=== PATIENT | male | born 1975 | race Caucasian/White ===

== ENCOUNTER 2017-11-08 19:42 | Emergency (ER) | payer OTHER ==
[2017-11-08 22:29] LABS: BASO % 0.2 % (0.0-1.0); EOS % 0.1 % (0.0-3.0); HEMATOCRIT 42.4 % (42.0-52.0); IMMATURE GRANULOCYTE % 0.4 % (0-3.0); LYMPH # 2.3 10^3/uL (1.5-4.5); LYMPH % 13.7 % (24.0-44.0); MEAN CORPUSCULAR HEMOGLOBIN 28.9 pg (27.0-33.0); MEAN CORPUSCULAR VOLUME 87.6 fl (80.0-96.0); MONO # 1.9 10^3/uL (0.0-0.8); MONO % 11.3 % (0.0-5.0); NEUTROPHILS # 12.4 10^3/uL (1.8-7.7); NEUTROPHILS % 74.3 % (36.0-66.0); PLATELET COUNT, AUTOMATED 234 10^3/uL (150-450); RED BLOOD COUNT 4.84 10^6/uL (4.30-6.10); RED CELL DISTRIBUTION WIDTH 12.5 % (11.5-14.5); WHITE BLOOD COUNT 16.7 10^3/uL (4.0-10.0)
[2017-11-08] MEDS: NS 1,000 ML IV (22:30)
[2017-11-08 22:32] LABS: KETONE, URINE AUTO RFX 1+ mg/dL (NEGATIVE); LEUKOCYTE ESTERASE UR AUTO RFX NEGATIVE (NEGATIVE); MUCUS, URINE RFX SMALL (NEGATIVE); NITRITE, URINE AUTO RFX NEGATIVE (NEGATIVE); RBC, URINE AUTO RFX 3 /HPF (0-3); SPECIFIC GRAVITY UR AUTO RFX 1.017 (1.002-1.035); SQUAM EPITHELIAL CELL UR AURFX 0 /HPF (0-6); WBC, URINE AUTO RFX 1 /HPF (0-3)
[2017-11-08 22:55] LABS: ALBUMIN 3.8 GM/DL (3.2-5.2); ALBUMIN/GLOBULIN RATIO 1.06 (1.00-1.93); ALKALINE PHOSPHATASE 65 U/L (45-117); ALT/SGPT 29 U/L (12-78); ANION GAP 7 MEQ/L (8-16); AST/SGOT 16 U/L (7-37); BILIRUBIN,DIRECT 0.1 MG/DL (0.0-0.2); BILIRUBIN,TOTAL 0.4 MG/DL (0.2-1.0); BLOOD UREA NITROGEN 8 MG/DL (7-18); CALCIUM LEVEL 8.8 MG/DL (8.5-10.1); CARBON DIOXIDE LEVEL 27 MEQ/L (21-32); CHLORIDE LEVEL 105 MEQ/L (98-107); CREATININE FOR GFR 0.92 MG/DL (0.70-1.30); GLOMERULAR FILTRATION RATE > 60.0 (>60); GLUCOSE, FASTING 107 MG/DL (70-100); LIPASE 96 U/L (73-393); POTASSIUM SERUM 4.3 MEQ/L (3.5-5.1); SODIUM LEVEL 139 MEQ/L (136-145); TOTAL PROTEIN 7.4 GM/DL (6.4-8.2)
[2017-11-08 23:04] LABS: INFLUENZA A AMPLIFICATION NEGATIVE (NEGATIVE); INFLUENZA B AMPLIFICATION NEGATIVE (NEGATIVE)
[2017-11-08] MEDS ORDERED: ISOVUE-370 76% 100ML VIAL (Q9967) As Ordered (23:24)
[2017-11-09] MEDS: AUGMENTIN 875 MG TAB PO (00:11)
[2017-11-09] MEDS: MAGIC MOUTHWASH SUSPENSION BTL SSP (00:29)
== END 2017-11-09 00:31 | disposition home or self-care (01) ==
LOC: M ED 11-09 00:31
DX: J02.9 Acute pharyngitis, unspecified (principal); R10.9 Unspecified abdominal pain; R50.9 Fever, unspecified; M79.1 Myalgia; M54.9 Dorsalgia, unspecified; Z88.8 Allergy status to other drugs, medicaments and biological substances
CPT/HCPCS: Q9967

== ENCOUNTER 2018-06-30 05:32 | Day surgery (SDC) | payer OTHER ==
[~2018-06-30] VITALS: Ht 167.6 cm; Wt 79.2 kg
[~2018-06-30 05:32] MED LIST: AUGM875T28 PO; IBUP-1022 PO; MAGICMW MT
[2018-06-30] MEDS ORDERED: ceFAZolin SOD 1 GM in D5W MINI-BAG PLUS 50 ML IV ONE (06:00)
[2018-06-30] MEDS ORDERED: LR 1,000 ML IV ONE (06:00)
[2018-06-30] MEDS ORDERED: LIDOCAINE 2% INJ 100 MG/5 ML SDV (FOR ANES.) As Ordered ONE (06:55)
[2018-06-30] MEDS ORDERED: PROPOFOL 200 MG/20 ML VIAL As Ordered ONE ×5 (06:55→09:00)
[2018-06-30] MEDS ORDERED: dexameTHASONE 4 MG/ML 1ML VIAL (J1100) As Ordered ONE (06:58)
[2018-06-30] MEDS ORDERED: ONDANSETRON 4MG/2ML VIAL (J2405) As Ordered ONE (06:58)
[2018-06-30] MEDS ORDERED: REMIFENTANIL 1MG 3ML VIAL As Ordered ONE ×2 (07:01→07:02)
[2018-06-30] MEDS ORDERED: HYDROmorphone HCL 2 MG/ML 1ML VIAL (J1170) As Ordered ONE (07:01)
[2018-06-30] MEDS ORDERED: MIDAZOLAM INJ 2 MG/2 ML VIAL (J2250) As Ordered ONE (07:02)
[2018-06-30] MEDS ORDERED: BUPIVACAINE/EPIN 0.25% 30 ML VIAL As Ordered ONE (07:14)
[2018-06-30] MEDS ORDERED: fentaNYL 100 MCG/2 ML INJECTION (J3010) As Ordered ONE ×2 (07:37→09:49)
[2018-06-30] MEDS ORDERED: SUGAMMADEX SODIUM 500 MG/5 ML VIAL (BRIDION) As Ordered ONE (08:00)
[2018-06-30] MEDS ORDERED: ROCURONIUM BROMIDE 50 MG/5 ML VIAL As Ordered ONE (08:01)
[2018-06-30] MEDS ORDERED: KETOROLAC 60 MG/2 ML VIAL (J1885) As Ordered ONE (08:13)
--- NOTE | 2018-06-30 09:45 | RO ---
DATE OF PROCEDURE: 06/30/2018 PREOPERATIVE DIAGNOSIS: Right inguinal hernia (recurrent). POSTOPERATIVE DIAGNOSIS: Right inguinal hernia (recurrent). PROCEDURE: Robotic-assisted laparoscopic right inguinal hernia repair with ProGrip mesh. SURGEON: Earl Romero MD TURNING MACHINE OPERATOR HELPER: Mariaelena Collins NP (provided instrument exchange, trocar placement and abdominal wall closure). ESTIMATED BLOOD LOSS: 15 mL. FLUIDS: Crystalloid. BRIEF PROCEDURE SUMMARY: The patient was brought to the operating room and was given general anesthesia. After adequate anesthesia and preoperative antibiotics, the patient was prepped and draped in the usual sterile fashion. Next, a supraumbilical incision was made with skin knife. Blunt dissection was carried down to fascia and Veress needle placed into the abdominal cavity, insufflated to 15 mm of pressure. A dilating 5 mm trocar was placed at this time and two lateral 8 mm trocars were placed. Next, the patient was placed into a steep Trendelenburg position. Camera port was replaced at the umbilicus, and the robot was docked without difficulty. Next, the peritoneum overlying the right side was taken down with monopolar cut scissors; however, this is extremely attenuated, very thin peritoneum, and I did make a small rent in this peritoneum that I closed up later with a #3-0 V-Loc. In any case, the dissection continued all the way to the inguinal canal, medially off Quinn's as well. Once this plane was obtained, the hernia sac was delivered out of the inguinal canal. It was quite attached to the previous hernia repair, but it was able to be dissected off this area. Eventually, once this was mobilized adequately, the ProGrip mesh was placed in the preperitoneal space, pressed into position and had a good lie on the area of the hernia, as well at the direct area. However, just going over the vas in this area, there was a deep drop-off into the pelvis so I made a little notch in the mesh here to allow for better placement. In any case, the peritoneum was closed with a running V-Loc #2-0. The peritoneal rent then was closed with a running V-Loc; however, in attempting to imbricate the hernia sac and then tacking it up to the anterior abdominal wall, the epigastric vein appeared to get poked with the tip of the needle. There was some oozing from the site, which was controlled with the bipolar scissors. There was no significant oozing after this, however, I did place some additional local Marcaine with epinephrine in the area of the dissection. This was again viewed, revealed no bleeding and then all trocars were removed under direct visualization. All trocars were removed from the site and #4-0 Vicryl was used close all incisions. Steri-Strips and dry sterile dressing was applied. The patient was awakened, extubated, brought to recovery room awake, alert, hemodynamically stable. Sponge and needle counts correct times two.
[2018-06-30] MEDS ORDERED: PERCOCET 5MG/325MG TAB As Ordered ONE (09:48)
[2018-06-30] MEDS: fentaNYL 100 MCG/2 ML INJECTION (J3010) IV PRN ×2 (09:54→09:59)
[2018-06-30] MEDS ORDERED: ONDANSETRON 4MG/2ML VIAL (J2405) IV PRN (10:00)
[2018-06-30] MEDS ORDERED: LR 1,000 ML IV SCH (10:00)
[2018-06-30] MEDS ORDERED: PERCOCET 5MG/325MG TAB PO PRN (10:00)
[2018-06-30 10:20] VITALS: BP 141/77
== END 2018-06-30 11:20 | disposition home or self-care (01) ==
LOC: M SDC 05:32
PROVIDERS: ATTEND Surgery
DX: K40.91 Unilateral inguinal hernia, without obstruction or gangrene, recurrent (principal); M12.9 Arthropathy, unspecified; T88.3XXD Malignant hyperthermia due to anesthesia, subsequent encounter; Z87.891 Personal history of nicotine dependence

== ENCOUNTER 2019-01-05 08:22 | Emergency (ER) | payer OTHER ==
[~2019-01-05] VITALS: Ht 167.6 cm; Wt 82.0 kg
[2019-01-05] MEDS ORDERED: ONDANSETRON 4MG/2ML VIAL (J2405) IV ONE (09:45)
--- NOTE | 2019-01-05 09:54 | REP ---
PA and lateral chest: Comparison is 11/08/2017. The lung hdez are clear. The cardiac size is normal. The bang, mediastinum, and skeletal structures are unremarkable. Impression: Negative PA and lateral chest. There is no interval change. Electronically Signed by Siddharth Ramirez MD 01/05/2019 09:46 A
[2019-01-05 10:05] LABS: HEMATOCRIT 40.7 % (42.0-52.0); HEMOGLOBIN 13.6 g/dl (13.5-17.5); MEAN CORPUSCULAR HEMOGLOBIN 28.8 pg (27.0-33.0); MEAN CORPUSCULAR HGB CONC 33.4 g/dl (32.0-36.5); MEAN CORPUSCULAR VOLUME 86.2 fl (80.0-96.0); PLATELET COUNT, AUTOMATED 252 10^3/uL (150-450); RED BLOOD COUNT 4.72 10^6/uL (4.30-6.10); WHITE BLOOD COUNT 11.4 10^3/uL (4.0-10.0)
[2019-01-05 10:31] LABS: ERYTHROCYTE SEDIMENTATION RATE 4 mm/hr (0-15)
[2019-01-05 10:36] LABS: C REACTIVE PROTEIN QUANTITATIV < 0.30 MG/DL (0.00-0.30); CK-MB VALUE MASS < 1.0 NG/ML (<3.6); CPK CREATINE PHOSPHOKINASE 114 U/L (39-308); MAGNESIUM LEVEL 2.2 MG/DL (1.8-2.4); MB/CK RELATIVE INDEX 0.88 (< OR =4); THYROID STIMULATING HORMONE 0.678 uIU/ML (0.358-3.740); TROPONIN I < 0.02 NG/ML (< 0.10)
--- NOTE | 2019-01-05 11:23 | REP ---
CT BRAIN WITHOUT CONTRAST: CT brain performed without IV contrast. The ventricles are normal in size and position with no midline shift or mass effect. Virgen-white differentiation is well maintained. There is no acute intracranial hemorrhage or extra-axial fluid collection. Bone window examination is unremarkable. IMPRESSION: Negative noncontrast CT brain. Electronically Signed by Siddharth Virgen MD 01/06/2019 03:38 P
[2019-01-05] MEDS ORDERED: NS 1,000 ML IV ONE (11:45)
[2019-01-05] MEDS ORDERED: MECLIZINE 25 MG TABLET PO ONE (11:45)
[2019-01-05] MEDS ORDERED: MECL-68 PO (13:01)
[2019-01-05] MEDS ORDERED: ZOFR8TAB24 PO (13:01)
[2019-01-05 13:36] VITALS: BP 130/83
--- NOTE | 2019-01-05 19:51 | ECGEPIP ---
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
--- NOTE | 2019-01-05 19:59 | ECGEPIP ---
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
== END 2019-01-05 13:30 | disposition home or self-care (01) ==
LOC: M ED 08:22
DX: H81.12 Benign paroxysmal vertigo, left ear (principal); E78.5 Hyperlipidemia, unspecified
CPT/HCPCS: 70450; 71046; 80047; 81001; 82550; 82553; 83735; 84443; 84484; 85027; 85652; 86140; 93005; 96361; 96374; 99284; J2405

== ENCOUNTER 2022-04-11 06:33 | Day surgery (SDC) | payer OTHER ==
[~2022-04-11] VITALS: Ht 167.6 cm; Wt 78.5 kg
[~2022-04-11 06:33] MED LIST changes: +MECL1TAB31 PO; +NS 1,000 ML IV ONE; +ZOFR8TAB24 PO
[2022-04-11] MEDS ORDERED: LIDOCAINE 2% 100MG/5ML SDV (FOR ANES.) As Ordered ONE (07:13)
[2022-04-11] MEDS ORDERED: propofoL 200 MG/20 ML VIAL As Ordered ONE (07:13)
[2022-04-11 08:30] VITALS: BP 123/83
== END 2022-04-11 08:45 | disposition home or self-care (01) ==
LOC: M OPP 06:33
PROVIDERS: ATTEND Internal Medicine Gastroenterology
DX: Z12.11 Encounter for screening for malignant neoplasm of colon (principal); K64.0 First degree hemorrhoids; K63.5 Polyp of colon; K44.9 Diaphragmatic hernia without obstruction or gangrene; K22.10 Ulcer of esophagus without bleeding; K31.89 Other diseases of stomach and duodenum; R12 Heartburn; Z88.8 Allergy status to other drugs, medicaments and biological substances; Z88.4 Allergy status to anesthetic agent; M13.89 Other specified arthritis, multiple sites; Z84.81 Family history of carrier of genetic disease

== ENCOUNTER 2025-03-02 02:33 | Emergency (ER) | payer OTHER ==
[~2025-03-02] VITALS: Ht 167.6 cm; Wt 77.3 kg
[~2025-03-02 02:33] MED LIST changes: -IBUP-1022 PO; +IBUP600T42 PO; +MECL-209 PO; -MECL1TAB31 PO; -NS 1,000 ML IV ONE
[2025-03-02] MEDS: KETOROLAC 30 MG/ML 1 ML VIAL IV ONE (03:09)
[2025-03-02] MEDS: ONDANSETRON 4MG 2ML VIAL IV ONE ×2 (03:09→08:09)
[2025-03-02] MEDS: NS (Normal Saline) 0.9% 1,000 ML IV ONE (03:10)
[2025-03-02 03:26] LABS: BASO # 0.1 10^3/uL (0.0-0.2); BASO % 0.5 % (0.0-1.0); EOS # 0.2 10^3/uL (0.0-0.5); EOS % 1.4 % (0.0-3.0); LYMPH # 3.2 10^3/uL (1.5-5.0); LYMPH % 24.6 % (24.0-44.0); MONO # 0.8 10^3/uL (0.0-0.8); MONO % 5.8 % (2.0-8.0); NEUTROPHILS # 8.7 10^3/uL (1.5-8.5); NEUTROPHILS % 67.4 % (36.0-66.0); PLATELET COUNT, AUTOMATED 356 10^3/uL (150-450)
[2025-03-02 03:43] LABS: ALT/SGPT 30 U/L (7.0-40); AST/SGOT 20 U/L (<34); CALCIUM LEVEL 9.6 MG/DL (8.5-10.1); CARBON DIOXIDE LEVEL 29 MMOL/L (20-31); CHLORIDE LEVEL 103 MMOL/L (98-107); CREATININE FOR GFR 0.99 MG/DL (0.70-1.30); GLOMERULAR FILTRATION RATE > 90.0 (>60); POTASSIUM SERUM 3.9 MMOL/L (3.5-5.1); SODIUM LEVEL 141 MMOL/L (136-145)
[2025-03-02 06:54] LABS: AMORPHOUS SEDIMENT LARGE (NEGATIVE); APPEARANCE, URINE TURBID (CLEAR); BACTERIA, URINE AUTO NEGATIVE (NEGATIVE); BILIRUBIN, URINE AUTO NEGATIVE (NEGATIVE); BLOOD, URINE BLOOD NEGATIVE (NEGATIVE); GLUCOSE, URINE (UA) AUTO NEGATIVE (NEGATIVE); KETONE, URINE AUTO 1+ mg/dL (NEGATIVE); LEUKOCYTE ESTERASE, URINE AUTO NEGATIVE (NEGATIVE); MUCUS, URINE SMALL (NEGATIVE); NITRITE, URINE AUTO NEGATIVE (NEGATIVE); PROTEIN, URINE AUTO 2+ mg/dL (NEGATIVE); RBC, URINE AUTO 1 /HPF (0-3); SPECIFIC GRAVITY URINE AUTO 1.019 (1.002-1.035); SQUAMOUS EPITHELIAL CELL UR AU 0 /HPF (0-6); UROBILINOGEN, URINE AUTO 0.2 mg/dL (0.0-2.0); WBC, URINE AUTO 1 /HPF (0-3)
[2025-03-02] MEDS ORDERED: ONDA-282 PO (07:55)
[2025-03-02] MEDS ORDERED: HYDR-3713 PO (07:55)
[2025-03-02] MEDS ORDERED: PROT20TA11 PO (07:55)
[2025-03-02 08:07] VITALS: BP 117/82; TEMP 97.6; O2SAT 99
[2025-03-02] MEDS: MORPHINE 4 MG/ML 1 ML VIAL IV ONE (08:08)
[2025-03-03] MEDS ORDERED: [UNRECOGNIZED DRUG - CODE] PO (20:09)
== END 2025-03-02 08:11 | disposition home or self-care (01) ==
LOC: M ED 02:33
DX: K80.20 Calculus of gallbladder without cholecystitis without obstruction (principal); F17.200 Nicotine dependence, unspecified, uncomplicated; Z88.8 Allergy status to other drugs, medicaments and biological substances
CPT/HCPCS: 74176; 76705; 80053; 81001; 85025; 96374; 96375; 99284; J1885; J2405

== ENCOUNTER 2025-03-03 15:46 | Inpatient (IN) | payer OTHER ==
[~2025-03-03] VITALS: Ht 167.6 cm; Wt 80.0 kg
[~2025-03-03 15:46] MED LIST changes: +HYDR-3713 PO; +ONDA-282 PO; +PROT20TA11 PO
[2025-03-03 17:20] LABS: BASO # 0.1 10^3/uL (0.0-0.2); BASO % 0.2 % (0.0-1.0); EOS # 0.0 10^3/uL (0.0-0.5); EOS % 0.1 % (0.0-3.0); LYMPH # 1.8 10^3/uL (1.5-5.0); LYMPH % 8.9 % (24.0-44.0); MONO # 1.6 10^3/uL (0.0-0.8); MONO % 7.8 % (2.0-8.0); NEUTROPHILS # 16.8 10^3/uL (1.5-8.5); NEUTROPHILS % 82.5 % (36.0-66.0); PLATELET COUNT, AUTOMATED 321 10^3/uL (150-450)
[2025-03-03 17:47] LABS: ALT/SGPT 22 U/L (7.0-40); AST/SGOT 16 U/L (<34); CALCIUM LEVEL 9.1 MG/DL (8.5-10.1); CARBON DIOXIDE LEVEL 28 MMOL/L (20-31); CHLORIDE LEVEL 103 MMOL/L (98-107); CREATININE FOR GFR 0.95 MG/DL (0.70-1.30); GLOMERULAR FILTRATION RATE > 90.0 (>60); POTASSIUM SERUM 4.2 MMOL/L (3.5-5.1); SODIUM LEVEL 138 MMOL/L (136-145)
[2025-03-03] MEDS: MORPHINE 2 MG/ML 1 ML VIAL IV ONE ×2 (19:24→20:27)
[2025-03-03] MEDS: LR 2,000 ML IV SCH (19:45)
[2025-03-03] MEDS ORDERED: VANCOMYCIN HCL 1,000 MG, VIAL MATE ADAPTER 1 EACH in NS 250 ML IV SCH (19:45)
[2025-03-03] MEDS: PIPERACILLIN/TAZOBACTAM SOD 4.5 GM in DEXTROSE 5% (D5W) ADV/MINI-BAG 50 ML IV SCH (19:56)
[2025-03-03] MEDS: NS (Normal Saline) 0.9% 1,000 ML IV SCH (19:57)
[2025-03-03] MEDS: ACETAMINOPHEN *IV* 1,000 MG in IV 1 EA IV ONE (19:57)
[2025-03-03] MEDS: NS (Normal Saline) 0.9% 1,000 ML IV ONE (19:57)
[2025-03-03] MEDS ORDERED: [UNRECOGNIZED DRUG - CODE] PO (20:09)
[2025-03-03] MEDS ORDERED: HOME MED LIST COMPLETE! XX SCH (20:10)
[2025-03-03] MEDS: PANTOPRAZOLE 40MG VIAL IV ONE (20:25)
[2025-03-03] MEDS: VANCOMYCIN HCL 1,500 MG, VIAL MATE ADAPTER 1 EACH in NS 500 ML IV ONE (21:31)
[2025-03-03] MEDS: D5W/LR 1,000 ML IV SCH (21:33)
[2025-03-03] MEDS: HEPARIN SOD 5000 UNITS/ML 1 ML VIAL/SYRINGE SC ONE (21:42)
[2025-03-03 22:00] VITALS: BP 118/73; TEMP 98.6; O2SAT 95
[2025-03-03 22:05] VITALS: O2SAT 96
[2025-03-04] VITALS (7 sets, daily range): BP systolic 105–126; BP diastolic 59–70; TEMP 98.1–100.7; O2SAT 94–95
[2025-03-04] MEDS: VANCOMYCIN HCL 750 MG, VIAL MATE ADAPTER 1 EACH in NS 250 ML IV SCH (04:10)
[2025-03-04] MEDS: ACETAMINOPHEN *IV* 1,000 MG in IV 1 EA IV PRN (05:53)
[2025-03-04] MEDS ORDERED: NALOXONE INJ 0.4 MG/1 ML VIAL IV PRN (07:20)
[2025-03-04] MEDS: HYDROMORPHONE HCL 0.5 MG/0.5 ML SYRINGE IV ONE (07:53)
[2025-03-04] MEDS: LR 1,000 ML IV ONE (07:53)
[2025-03-04] MEDS: ONDANSETRON 4MG 2ML VIAL IV PRN (08:12)
[2025-03-04] MEDS: KETOROLAC 30 MG/ML 1 ML VIAL IV SCH (08:16)
[2025-03-04] MEDS: PANTOPRAZOLE 40MG VIAL IV SCH (08:16)
[2025-03-04] MEDS: LR 1,000 ML IV SCH (09:08)
[2025-03-04 10:11] LABS: BASO # 0.1 10^3/uL (0.0-0.2); BASO % 0.3 % (0.0-1.0); EOS # 0.1 10^3/uL (0.0-0.5); EOS % 0.3 % (0.0-3.0); LYMPH # 1.2 10^3/uL (1.5-5.0); LYMPH % 6.7 % (24.0-44.0); MONO # 1.5 10^3/uL (0.0-0.8); MONO % 8.3 % (2.0-8.0); NEUTROPHILS # 15.1 10^3/uL (1.5-8.5); NEUTROPHILS % 83.9 % (36.0-66.0); PLATELET COUNT, AUTOMATED 226 10^3/uL (150-450)
[2025-03-04 10:22] LABS: INR 1.28
[2025-03-04 11:25] LABS: ALT/SGPT 96 U/L (7.0-40); AST/SGOT 68 U/L (<34); CALCIUM LEVEL 8.1 MG/DL (8.5-10.1); CARBON DIOXIDE LEVEL 23 MMOL/L (20-31); CHLORIDE LEVEL 108 MMOL/L (98-107); CREATININE FOR GFR 0.81 MG/DL (0.70-1.30); GLOMERULAR FILTRATION RATE > 90.0 (>60); MAGNESIUM LEVEL 1.7 MG/DL (1.8-2.4); POTASSIUM SERUM 3.7 MMOL/L (3.5-5.1); SODIUM LEVEL 139 MMOL/L (136-145)
[2025-03-04] MEDS: HYDROMORPHONE HCL 0.5 MG/0.5 ML SYRINGE IV PRN (13:13)
[2025-03-04] MEDS: ACETAMINOPHEN *IV* 1,000 MG in IV 1 EA IV ONE (15:29)
[2025-03-04] MEDS ORDERED: dexmedeTOMIDine (4 MCG/ML) 200 MCG/50 ML BTL As Ordered ONE (15:44)
[2025-03-04] MEDS ORDERED: MIDAZOLAM INJ 2 MG/2 ML VIAL As Ordered ONE (15:44)
[2025-03-04] MEDS ORDERED: SUGAMMADEX SODIUM 500 MG/5 ML VIAL As Ordered ONE (15:45)
[2025-03-04] MEDS ORDERED: ROCURONIUM BROMIDE 50MG/5ML VIAL As Ordered ONE (15:45)
[2025-03-04] MEDS ORDERED: ONDANSETRON 4MG 2ML VIAL As Ordered ONE (15:45)
[2025-03-04] MEDS ORDERED: dexAMETHasone 4 MG/ML 1 ML VIAL As Ordered ONE (15:45)
[2025-03-04] MEDS ORDERED: ACETAMINOPHEN 1000MG/100ML IV BAG As Ordered ONE (16:00)
[2025-03-04] MEDS ORDERED: KETOROLAC 30 MG/ML 1 ML VIAL As Ordered ONE (16:07)
[2025-03-04] MEDS: INDOCYANINE GREEN 25 MG VIAL As Ordered ONE (21:05)
[2025-03-04] MEDS: LIDOCAINE 1% SDV 30 ML VIAL As Ordered ONE (21:14)
[2025-03-04] MEDS ORDERED: HYDROmorphone HCL 2 MG/ML 1 ML VIAL As Ordered ONE (21:33)
[2025-03-04] MEDS ORDERED: ONDANSETRON 4MG 2ML VIAL IV PRN (22:55)
[2025-03-04] MEDS ORDERED: HYDROMORPHONE HCL 0.5 MG/0.5 ML SYRINGE IV PRN (22:55)
[2025-03-05] VITALS (13 sets, daily range): BP systolic 101–136; BP diastolic 52–75; TEMP 97.2–99; O2SAT 89–96
[2025-03-05 09:32] LABS: BASO # 0.0 10^3/uL (0.0-0.2); BASO % 0.1 % (0.0-1.0); EOS # 0.0 10^3/uL (0.0-0.5); EOS % 0.0 % (0.0-3.0); LYMPH # 0.9 10^3/uL (1.5-5.0); LYMPH % 5.0 % (24.0-44.0); MONO # 0.7 10^3/uL (0.0-0.8); MONO % 3.9 % (2.0-8.0); NEUTROPHILS # 15.3 10^3/uL (1.5-8.5); NEUTROPHILS % 90.5 % (36.0-66.0); PLATELET COUNT, AUTOMATED 246 10^3/uL (150-450)
[2025-03-05] MEDS ORDERED: ISOVUE-370 76% 100 ML VIAL As Ordered ONE (09:58)
[2025-03-05 10:03] LABS: ALT/SGPT 85 U/L (7.0-40); AST/SGOT 46 U/L (<34); CALCIUM LEVEL 8.3 MG/DL (8.5-10.1); CARBON DIOXIDE LEVEL 24 MMOL/L (20-31); CHLORIDE LEVEL 107 MMOL/L (98-107); CREATININE FOR GFR 0.82 MG/DL (0.70-1.30); GLOMERULAR FILTRATION RATE > 90.0 (>60); POTASSIUM SERUM 4.1 MMOL/L (3.5-5.1); SODIUM LEVEL 140 MMOL/L (136-145)
[2025-03-05] MEDS: LR 1,000 ML IV SCH (14:50)
[2025-03-06 04:03] VITALS: BP 119/71; TEMP 97.7; O2SAT 93
[2025-03-06 06:43] LABS: BASO # 0.0 10^3/uL (0.0-0.2); BASO % 0.3 % (0.0-1.0); EOS # 0.1 10^3/uL (0.0-0.5); EOS % 1.2 % (0.0-3.0); LYMPH # 2.7 10^3/uL (1.5-5.0); LYMPH % 24.5 % (24.0-44.0); MONO # 0.8 10^3/uL (0.0-0.8); MONO % 7.1 % (2.0-8.0); NEUTROPHILS # 7.3 10^3/uL (1.5-8.5); NEUTROPHILS % 66.5 % (36.0-66.0); PLATELET COUNT, AUTOMATED 288 10^3/uL (150-450)
[2025-03-06] MEDS ORDERED: PERC5TAB12 PO (06:48)
[2025-03-06] MEDS ORDERED: AMOX875T2 PO (06:48)
[2025-03-06] MEDS ORDERED: BACI1CAP PO (06:48)
[2025-03-06 07:03] LABS: ALT/SGPT 56 U/L (7.0-40); AST/SGOT 24 U/L (<34); CALCIUM LEVEL 7.9 MG/DL (8.5-10.1); CARBON DIOXIDE LEVEL 27 MMOL/L (20-31); CHLORIDE LEVEL 112 MMOL/L (98-107); CREATININE FOR GFR 0.96 MG/DL (0.70-1.30); GLOMERULAR FILTRATION RATE > 90.0 (>60); POTASSIUM SERUM 3.7 MMOL/L (3.5-5.1); SODIUM LEVEL 145 MMOL/L (136-145)
== END 2025-03-06 11:22 | disposition home or self-care (01) | DRG 419 ==
LOC: M ED 15:46 → M ED INP 20:32 → M MSPAV 21:57
PROVIDERS: ADMIT Student in an Organized Health Care Education/Training Program; ATTEND General Practice
PROC: 8E0W4CZ Robotic Assisted Procedure of Trunk Region, Percutaneous Endoscopic Approach (ICD-10-PCS; 2025-03-04)
PROC: 0FT44ZZ Resection of Gallbladder, Percutaneous Endoscopic Approach (ICD-10-PCS; principal; 2025-03-04 19:00)
DX: K81.0 Acute cholecystitis (principal); F17.210 Nicotine dependence, cigarettes, uncomplicated; M17.9 Osteoarthritis of knee, unspecified; M19.019 Primary osteoarthritis, unspecified shoulder; Z88.8 Allergy status to other drugs, medicaments and biological substances